=== PATIENT | male | born 1970 | race Caucasian/White ===

== ENCOUNTER 2025-03-24 21:26 | Emergency (ER) | payer OTHER, SELFPAY ==
[2025-03-24 21:49] VITALS: BP 175/105; PULSE 87; TEMP 36; O2SAT 97; BMI 34.4
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
[2025-03-24] MEDS: OXYCODONE HCL/ACETAMINOPHEN 5MG/325MG 1 TAB PO (23:43)
[2025-03-24] MEDS: ONDANSETRON 4 MG RAPDIS TABLET SL (23:43)
[2025-03-25] MEDS: ORPHENADRINE CITRATE 100 MG TABLET.ER PO (00:01)
== END 2025-03-25 00:04 | disposition home or self-care (01) ==
PROVIDERS: Emergency Provider Emergency Medicine; PCP Family Medicine
DX: S16.1XXA Strain of muscle, fascia and tendon at neck level, initial encounter (principal); S29.012A Strain of muscle and tendon of back wall of thorax, initial encounter; V49.49XA Driver injured in collision with other motor vehicles in traffic accident, initial encounter
CPT/HCPCS: 70450; 71046; 72125; 72128; 99284; Q0162